=== PATIENT | male | born 1935 | race Caucasian/White ===

== ENCOUNTER → 2019-02-12 | Outpatient (CLI) | payer MEDICARE ==
[~2019-02-12] MED LIST: ALLO300; ASPI81CH; ATOR40TA PO; CARV3.125 PO; CILO100; CLOP75; LISI20 PO; Norvasc2.5 MG; SYNTHROID25 MCG
== END | disposition home or self-care (01) ==
LOC: PLD 08:03 → LAB SHORT 08:03
DX: L98.9 Disorder of the skin and subcutaneous tissue, unspecified (principal)
CPT/HCPCS: 88305; 88312

== ENCOUNTER → 2019-03-07 | Outpatient (CLI) | payer MEDICARE | END | disposition home or self-care (01) | LOC: LAB SHORT 11:57 → OLS 11:57 | DX: C44.329 Squamous cell carcinoma of skin of other parts of face (principal) | CPT/HCPCS: 88305 ==

== ENCOUNTER → 2019-03-21 | Outpatient (CLI) | payer MEDICARE | END | disposition home or self-care (01) | LOC: LAB 09:49 → LAB SHORT 09:49 | DX: C44.329 Squamous cell carcinoma of skin of other parts of face (principal) | CPT/HCPCS: 88305 ==

== ENCOUNTER 2020-05-06 11:23 | Day surgery (SDC) | payer MEDICARE ==
[~2020-05-06] VITALS: Ht 175.3 cm; Wt 73.2 kg
--- NOTE | 2020-05-06 12:53 | NUR ---
05/06/20 1253 Agnieszka Cox DELAYED ENTRY 1238 ABNORMAL 3 LEAD EKG IN PREOP. [address] CHRISTINE. OK TO PROCEED.
== END 2020-05-06 13:53 | disposition home or self-care (01) ==
LOC: ORSCSDS 11:23
PROVIDERS: Internal Medicine Gastroenterology
PROC: 0DBH8ZX Excision of Cecum, Via Natural or Artificial Opening Endoscopic, Diagnostic (ICD-10-PCS; principal; 2020-05-06 12:45)
PROC: 0DBN8ZX Excision of Sigmoid Colon, Via Natural or Artificial Opening Endoscopic, Diagnostic (ICD-10-PCS; principal; 2020-05-06 12:45)
DX: R19.4 Change in bowel habit (principal); D12.0 Benign neoplasm of cecum; D12.5 Benign neoplasm of sigmoid colon; K57.30 Diverticulosis of large intestine without perforation or abscess without bleeding; K64.4 Residual hemorrhoidal skin tags; K64.8 Other hemorrhoids; K92.1 Melena; E05.90 Thyrotoxicosis, unspecified without thyrotoxic crisis or storm; I10 Essential (primary) hypertension; R63.4 Abnormal weight loss; I25.10 Atherosclerotic heart disease of native coronary artery without angina pectoris; Z79.01 Long term (current) use of anticoagulants; Z79.82 Long term (current) use of aspirin; Z79.899 Other long term (current) drug therapy
CPT/HCPCS: 88305; 93005; 93010; J2704; J7120

== ENCOUNTER 2021-01-11 19:57 | Emergency (ER) | payer MEDICARE ==
[~2021-01-11] VITALS: Ht 175.3 cm; Wt 72.1 kg
[~2021-01-11 19:57] MED LIST changes: -CLOP75; +CLOP75 PO; +LEVSOD100 PO; -SYNTHROID25 MCG
[2021-01-11] MEDS ORDERED: PROBENECID-COL1 EACH PO (20:11)
[2021-01-11 20:18] LABS: BASOPHILS ABSOLUTE AUTO 0.01 K/mm3 (0.00-0.23); BASOPHILS PERCENT AUTO 0 % (0-2); EOSINOPHILS ABSOLUTE AUTO 0.08 K/mm3 (0.00-0.68); EOSINOPHILS PERCENT AUTO 2 % (0-6); Hematocrit 30.5 % (37.0-53.0); Hemoglobin 10.1 g/dL (13.5-17.5); IMMATURE GRAN PERCENT AUTO 3 % (0-1); LYMPHOCYTES ABSOLUTE AUTO 1.74 K/mm3 (0.84-5.20); LYMPHOCYTES PERCENT AUTO 48 % (21-46); MONOCYTES ABSOLUTE AUTO 0.44 K/mm3 (0.16-1.47); MONOCYTES PERCENT AUTO 12 % (4-13); Mean Corpuscular HGB 31.6 pg (26.0-34.0); Mean Corpuscular HGB Conc 33.1 g/dL (31.5-36.5); Mean Corpuscular Volume 95 fL (80-100); Mean Platelet Volume 9.2 fL (9.1-12.4); NEUTROPHILS ABSOLUTE AUTO 1.26 K/mm3 (1.96-9.15); NEUTROPHILS PERCENT AUTO 35 % (41-73); Platelet Count 218 K/mm3 (150-400); RDW Coefficient Variation 13.7 % (11.7-14.2); RDW Standard Deviation 48.2 fL (35.1-46.3); White Blood Cell Count 3.63 K/mm3 (4.00-11.30)
[2021-01-11 20:37] LABS: Albumin/Globulin Ratio 0.8 (0.8-1.8); Bilirubin, Total 0.2 mg/dL (0.1-1.0); Bun/Creatinine Ratio 13.9 (12.0-20.0); Calcium, Blood 9.2 mg/dL (8.5-10.1); Creatinine, Blood 1.66 mg/dL (0.60-1.20); Globulin, Blood 3.7 g/dL (2.2-4.0); Magnesium, Blood 2.2 mg/dL (1.6-2.4); Total Protein, Blood 6.7 g/dL (6.4-8.2)
== END 2021-01-11 23:04 | disposition home or self-care (01) ==
LOC: ER 19:57
PROVIDERS: Student in an Organized Health Care Education/Training Program
DX: R55 Syncope and collapse (principal); Z88.1 Allergy status to other antibiotic agents; Z79.02 Long term (current) use of antithrombotics/antiplatelets; Z95.5 Presence of coronary angioplasty implant and graft; Z79.899 Other long term (current) drug therapy; Z87.891 Personal history of nicotine dependence
CPT/HCPCS: 70450; 71045; 80053; 83735; 84484; 85025; 93005; 93010; 99285-25; J7030

== ENCOUNTER 2021-10-27 15:59 | Emergency (ER) | payer MEDICARE ==
[~2021-10-27] VITALS: Ht 175.3 cm; Wt 70.3 kg
[~2021-10-27 15:59] MED LIST changes: +EUTHYROX125 MCG PO; -LEVSOD100 PO; +PROBENECID-COL1 EACH PO
[2021-10-27 18:10] LABS: BASOPHILS ABSOLUTE AUTO 0.01 K/mm3 (0.00-0.23); BASOPHILS PERCENT AUTO 0 % (0-2); EOSINOPHILS ABSOLUTE AUTO 0.03 K/mm3 (0.00-0.68); EOSINOPHILS PERCENT AUTO 1 % (0-6); Hematocrit 31.2 % (37.0-53.0); Hemoglobin 10.3 g/dL (13.5-17.5); IMMATURE GRAN ABSOLUTE AUTO 0.07 K/mm3 (0.00-0.10); IMMATURE GRAN PERCENT AUTO 2 % (0-1); LYMPHOCYTES ABSOLUTE AUTO 1.18 K/mm3 (0.84-5.20); LYMPHOCYTES PERCENT AUTO 26 % (21-46); MONOCYTES PERCENT AUTO 11 % (4-13); Mean Corpuscular HGB 30.5 pg (26.0-34.0); Mean Corpuscular Volume 92 fL (80-100); Mean Platelet Volume 8.9 fL (9.1-12.4); NEUTROPHILS ABSOLUTE AUTO 2.79 K/mm3 (1.96-9.15); NEUTROPHILS PERCENT AUTO 61 % (41-73); Platelet Count 275 K/mm3 (150-400); RDW Coefficient Variation 14.2 % (11.7-14.2); RDW Standard Deviation 47.8 fL (35.1-46.3); Red Blood Cell Count 3.38 M/mm3 (4.30-5.90); White Blood Cell Count 4.58 K/mm3 (4.00-11.30)
[2021-10-27 18:37] LABS: Albumin, Blood 3.2 g/dL (3.4-5.0); Albumin/Globulin Ratio 0.8 (0.8-1.8); Bilirubin, Total 0.4 mg/dL (0.1-1.0); Calcium, Blood 10.8 mg/dL (8.5-10.1); Creatinine, Blood 1.28 mg/dL (0.60-1.20); Globulin, Blood 3.8 g/dL (2.2-4.0); Potassium, Blood 4.6 mmol/L (3.5-5.5)
[2021-10-27 19:27] LABS: Source, Urine Voided
[2021-10-27 19:31] LABS: Appearance, Urine Clear (Clear); Bilirubin, Urine Neg (Neg); Blood, Urine Neg (Neg); Color, Urine Yellow (P-Yellow); Glucose Qualitative, Urine Neg (Neg); Ketones, Urine 1+ (Neg); Leukocyte Esterase, Urine Neg (Neg); Nitrite, Urine Neg (Neg); Protein, Urine Neg (Neg); Urobilinogen, Urine NORM (Normal)
[2021-10-27 19:43] LABS: Free Thyroxine 1.26 ng/dL (0.70-1.60); Thyroid Stimulating Hormone 0.479 uIU/mL (0.360-4.800)
== END 2021-10-27 21:04 | disposition home or self-care (01) ==
LOC: ER 15:59
PROVIDERS: Emergency Medicine
DX: E87.1 Hypo-osmolality and hyponatremia (principal); N18.9 Chronic kidney disease, unspecified; Z79.899 Other long term (current) drug therapy; Z87.891 Personal history of nicotine dependence
CPT/HCPCS: 70450; 71045; 80053; 81003; 83880; 84439; 84443; 84484; 85025; 93005; 93010; 99285-25

== ENCOUNTER 2021-10-29 07:43 | Inpatient (IN) | payer MEDICARE ==
[~2021-10-29] VITALS: Ht 175.3 cm; Wt 70.3 kg
[2021-10-29] MEDS ORDERED: METOPROLOL SUCC25 MG PO (08:06)
[2021-10-29 08:47] LABS: BASOPHILS ABSOLUTE AUTO 0.01 K/mm3 (0.00-0.23); BASOPHILS PERCENT AUTO 0 % (0-2); EOSINOPHILS ABSOLUTE AUTO 0.07 K/mm3 (0.00-0.68); EOSINOPHILS PERCENT AUTO 2 % (0-6); Hemoglobin 10.3 g/dL (13.5-17.5); IMMATURE GRAN ABSOLUTE AUTO 0.05 K/mm3 (0.00-0.10); IMMATURE GRAN PERCENT AUTO 1 % (0-1); LYMPHOCYTES ABSOLUTE AUTO 1.34 K/mm3 (0.84-5.20); LYMPHOCYTES PERCENT AUTO 34 % (21-46); MONOCYTES ABSOLUTE AUTO 0.57 K/mm3 (0.16-1.47); MONOCYTES PERCENT AUTO 15 % (4-13); Mean Corpuscular HGB 30.7 pg (26.0-34.0); Mean Corpuscular HGB Conc 33.2 g/dL (31.5-36.5); Mean Corpuscular Volume 93 fL (80-100); Mean Platelet Volume 9.2 fL (9.1-12.4); NEUTROPHILS ABSOLUTE AUTO 1.86 K/mm3 (1.96-9.15); NEUTROPHILS PERCENT AUTO 48 % (41-73); Platelet Count 284 K/mm3 (150-400); RDW Standard Deviation 47.8 fL (35.1-46.3); Red Blood Cell Count 3.35 M/mm3 (4.30-5.90)
[2021-10-29 09:07] LABS: Albumin, Blood 3.1 g/dL (3.4-5.0); Albumin/Globulin Ratio 0.8 (0.8-1.8); Bilirubin, Total 0.6 mg/dL (0.1-1.0); Bun/Creatinine Ratio 12.6 (12.0-20.0); Calcium, Blood 10.9 mg/dL (8.5-10.1); Creatinine, Blood 1.35 mg/dL (0.60-1.20); Globulin, Blood 3.9 g/dL (2.2-4.0); Magnesium, Blood 2.2 mg/dL (1.6-2.4); Potassium, Blood 4.4 mmol/L (3.5-5.5)
[2021-10-29 09:23] LABS: Source, Urine Clean Catch
[2021-10-29 09:43] LABS: Appearance, Urine Clear (Clear); Bilirubin, Urine Neg (Neg); Blood, Urine Neg (Neg); Color, Urine Yellow (P-Yellow); Glucose Qualitative, Urine Neg (Neg); Ketones, Urine Neg (Neg); Leukocyte Esterase, Urine Neg (Neg); Nitrite, Urine Neg (Neg); Protein, Urine Neg (Neg); Urobilinogen, Urine NORM (Normal)
[2021-10-29] MEDS ORDERED: GABA100 PO (22:02)
[2021-10-29] MEDS ORDERED: TRIDERM28.4 GM TOP (22:03)
[2021-10-29] MEDS ORDERED: ISOSORBIDE MONO60 MG PO (22:07)
[2021-10-29] MEDS ORDERED: PRAVASTATIN SOD20 MG PO (22:08)
[2021-10-30 02:05] LABS: U Amphetamine Screen Not Detected; U Barbituate Screen Not Detected; U Benzodiazapine Screen Not Detected; U Buprenorphine Screen Not Detected; U Cannabinoids Screen Not Detected; U Cocaine Screen Not Detected; U Methadone Screen Not Detected; U Methamphetamine Screen Not Detected; U Opiates Screen Not Detected; U Oxycodone Screen Not Detected; U Phencyclidine Screen Not Detected; U Propoxyphene Screen Not Detected
[2021-10-30 02:09] LABS: Influenza A, PCR NEGATIVE (NEGATIVE); Influenza B, PCR NEGATIVE (NEGATIVE); Resp Syncytial Virus, PCR NEGATIVE (NEGATIVE); SARS-Cov-2 (COVID-19) PCR, MMC NEGATIVE (NEGATIVE)
[2021-10-30 08:34] LABS: BASOPHILS ABSOLUTE AUTO 0.01 K/mm3 (0.00-0.23); BASOPHILS PERCENT AUTO 0 % (0-2); EOSINOPHILS ABSOLUTE AUTO 0.06 K/mm3 (0.00-0.68); EOSINOPHILS PERCENT AUTO 1 % (0-6); Hematocrit 34.7 % (37.0-53.0); Hemoglobin 11.3 g/dL (13.5-17.5); IMMATURE GRAN ABSOLUTE AUTO 0.04 K/mm3 (0.00-0.10); IMMATURE GRAN PERCENT AUTO 1 % (0-1); LYMPHOCYTES ABSOLUTE AUTO 1.16 K/mm3 (0.84-5.20); LYMPHOCYTES PERCENT AUTO 22 % (21-46); MONOCYTES ABSOLUTE AUTO 0.54 K/mm3 (0.16-1.47); MONOCYTES PERCENT AUTO 10 % (4-13); Mean Corpuscular HGB Conc 32.6 g/dL (31.5-36.5); Mean Corpuscular Volume 92 fL (80-100); Mean Platelet Volume 8.9 fL (9.1-12.4); NEUTROPHILS PERCENT AUTO 66 % (41-73); Platelet Count 298 K/mm3 (150-400); RDW Coefficient Variation 13.8 % (11.7-14.2); RDW Standard Deviation 46.9 fL (35.1-46.3); Red Blood Cell Count 3.77 M/mm3 (4.30-5.90); White Blood Cell Count 5.31 K/mm3 (4.00-11.30)
[2021-10-30 08:47] LABS: Alanine Aminotransfer (ALT/SGP 19 U/L (12-78); Albumin, Blood 3.1 g/dL (3.4-5.0); Albumin/Globulin Ratio 0.8 (0.8-1.8); Alk Phos 73 U/L (50-136); Anion Gap 7 mmol/L (6-16); Aspartate Aminotrans (AST/SGOT 20 U/L (12-37); Bilirubin, Total 0.4 mg/dL (0.1-1.0); Blood Urea Nitrogen 18 mg/dL (8-24); Bun/Creatinine Ratio 16.5 (12.0-20.0); CO2, Blood 25 mmol/L (21-32); Calcium, Blood 10.2 mg/dL (8.5-10.1); Chloride, Blood 103 mmol/L (98-108); Creatinine, Blood 1.09 mg/dL (0.60-1.20); Globulin, Blood 4.1 g/dL (2.2-4.0); Glomerular Filtration Rate >60 (60-); Glucose, Blood 105 mg/dL (70-99); Potassium, Blood 3.8 mmol/L (3.5-5.5); Sodium, Blood 135 mmol/L (136-145); Total Protein, Blood 7.2 g/dL (6.4-8.2)
[2021-10-30] MEDS ORDERED: LISI5 PO (11:43)
[2021-10-30] MEDS ORDERED: CLOP75 PO (11:44)
[2021-10-30] MEDS ORDERED: ASPIR 8181 M1 PO (11:46)
--- NOTE | 2021-10-30 12:19 | NUR ---
MD CALL CALLED DR HILL TO LET HER KNOW ORTHOSTATIC BP RESULTS AND THAT MED REC WAS DONE.
--- NOTE | 2021-10-30 17:18 | NUR ---
SHIFT SUMMARY MR ECKERT IS A&OX4. HE SAID THAT HE FEELS MENTALLY "FUZZY" AND WHEN HE CLOSES HIS EYES HE "HALLUCINATES" THAT HE IS GETTING PROCEDURES DONE IN THE HOSPITAL, BUT WHEN HE OPENS HIS EYES HE KNOWS IT'S NOT REAL. APPROPRIATE AND ENGAGED IN CONVERSATION WITH ME TODAY. HEAD MRI DONE. NO SOB ON RA. NO PAIN TODAY. OOBTC WITH 2 PERSON ASSIST AFTER PT EVALUATION THIS AM. UP FOR LUNCH, WEAK TRANSFER WITH [facility]T, WALKER, 2 STAFF ASSIST. FATIGUED AFTER BEING OOB FOR LUNCH. RLE FIRM SWOLLEN LEG THAT PT SAID HE HAS HAD FOR 3 YEARS, AND HAS HAD BAKERS CYST BEHIND R KNEE DRAINED MORE THAN ONCE. HTN THIS AM, MEDICATIONS HELPED. PT SAID HTN HAS BEEN UNCONTROLLED FOR A LONG TIME AT HOME. PENA TO DRAINAGE BAG. IVF INFUSING. TOLERATING PO FLUIDS AND MAKING AN EFFORT TO DRINK WELL TODAY. BED LOW, CALL LIGHT IN REACH.
[2021-10-31 05:22] LABS: Hematocrit 27.5 % (37.0-53.0); Hemoglobin 9.2 g/dL (13.5-17.5); Mean Corpuscular HGB 30.7 pg (26.0-34.0); Mean Corpuscular HGB Conc 33.5 g/dL (31.5-36.5); Mean Corpuscular Volume 92 fL (80-100); Mean Platelet Volume 9.3 fL (9.1-12.4); Platelet Count 252 K/mm3 (150-400); RDW Coefficient Variation 13.8 % (11.7-14.2); RDW Standard Deviation 46.3 fL (35.1-46.3)
--- NOTE | 2021-10-31 05:43 | NUR ---
SHIFT SUMMARY PT SLEPT OFF AND ON THIS EVENING. REPORTING PAIN TO NECK AND SHOULDERS. HEATING PAD APPLIED WITH SOME RELIEF. NEW ORDER FOR NAPROXEN WITH GOOD EFFECT. PT REPORTING THE NEED TO HAVE A BOWEL MOVEMENT. MIRALAX GIVEN BY DAY RN AND SCHEDULED 2100 [address] ADMINISTERED WITH NO OUTPUT. SUPPOSITORY ORDERED THIS AM AND ADMINISTERED. AWAITING RESULTS. PT CONTINUES WITH WEAKNESS. MOBILITY VERY LIMITED. PT REMAINED IN BED THROUGHOUT THE NIGHT. PENA PATENT AND DRAINING. FLUID INFUSION COMPLETED AND PT SALINE LOCKED. VITAL SIGNS STABLE. WILL CONTINUE TO MONITOR.
[2021-10-31 06:04] LABS: Anion Gap 7 mmol/L (6-16); Blood Urea Nitrogen 25 mg/dL (8-24); Bun/Creatinine Ratio 19.8 (12.0-20.0); CHOL/HDL RATIO 2.9; CO2, Blood 22 mmol/L (21-32); Calcium, Blood 8.7 mg/dL (8.5-10.1); Chloride, Blood 98 mmol/L (98-108); Cholesterol 126 mg/dL (50-200); Creatinine, Blood 1.26 mg/dL (0.60-1.20); Glomerular Filtration Rate 54 (60-); Glucose, Blood 99 mg/dL (70-99); HDL Cholesterol 43 mg/dL (>39); LDL/HDL RATIO 1.6; Low Density Lipoprotein Chol 69 mg/dL (0-110); Potassium, Blood 3.9 mmol/L (3.5-5.5); Sodium, Blood 127 mmol/L (136-145); Triglycerides 70 mg/dL (30-160); Very Low Density Lipoprot Chol 14 mg/dL (6-32)
--- NOTE | 2021-10-31 11:54 | NUR ---
AM NOTE MR ECKERT IS ALERT, ORIENTATED X4. HE SAID THAT THE "FUZZY" FEELING IN HIS HEAD THAT HE HAD YESTERDAY HAS IMPROVED. HE DENIES HALLUCINATIONS TODAY. HE HAS 1/10 NECK/SHOULDER PAIN THAT HE SAID IS VERY MINOR. NO SOB ON RA, NO CHEST PAIN. 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 HIS SAID THAT SHE HAS NOTICED THAT HE IS WEAKER ON HIS RIGHT LEG AND ARM AT HOME. NO FACIAL DROOP. BEDSIDE ECHO DONE THIS AM. TRANSPORT COMING TO GET HIM NOW FOR HEAD AND NECK CT. NEW PIV PLACED AND IVF INFUSING. BED LOW, CALL LIGHT IN REACH.
--- NOTE | 2021-10-31 17:50 | NUR ---
[facility] VISIT- Pt sitting up in bed eating his dinner. He is alert, oriented, happy to see me. 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 Pt reports he has been weak and experiencing falls at home and could not get himself up. He was dx with CVA with work up during this hospital stay. He reports getting stronger and working with PT/OT daily. 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 He reports they live in a home nearby his and on the same property now. He states his is dealing with some heart issues and is not able to cont with ranching either. 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 He is not having any difficuly expressing himself or articulating thoughts and feelings. He expressed feeling some gratitude at being near the end of his life due to the current state of the world. He spoke about children, family members and reminisced about enjoyable times. He has children that do not speak to him and one on a heart transplant list in [place] in addition to the son who lives near him. Denise is independent in her self care but worried about Mamadou returning home. Current PT recommendation is for home with HH. Pt is agreeable to that or going to SNF for rehab if recommended. He is emotional, appropriately at times. He appears to have a good appetite and is finishing his dinner, despite remarking that meals come to room cold and without a lot of flavor. Pt is a very good cook himself and it is one of his enjoyments at home in the past. Time spent supporting and listening, encouraging pt. Will return for support. Pt denies pain. Reports discomfort of being in bed. He is troubled by the increased effort it has become to talk and make his voice audible. He is sl dyspnic with extended conversation. He appears fatigued and frail.
--- NOTE | 2021-10-31 18:51 | NUR ---
SHIFT SUMMARY SEE AM NOTE, NO SIGNIFICANT CHANGES IN ASSESSMENT. HAD HEAD/NECK CT TODAY AND BEDSIDE ECHO. IVF INFUSED TODAY. TOLERATED ORAL FLUIDS WELL, NO PAIN OR SOB. BED LOW, CALL LIGHT IN REACH. PENA STILL IN, URINE CLEAR AND PALE. TOLERATING PO FLUIDS WELL.
--- NOTE | 2021-11-01 03:56 | NUR ---
SHIFT SUMMARY PT APPEARED TO SLEEP BETTER THIS EVENING WHEN NOT BEING WOKEN BY STAFF. LARGE GREEN UNFORMED BM PER TRADING SPECIALIST ON BEDPAN. PENA CATH REMAINED IN PLACE, PATENT AND DRAINING. PT REPORTED THAT PAIN TO SHOULDERS/NECK IMPROVED AND PT DID REQUIRE ANY NAPROXEN THIS SHIFT. HEATING PAD IN PLACE ON SHOULDERS/NECK. NO ACUTE CHANGES THIS EVENING. VITAL SIGNS STABLE. WILL CONTINUE TO MONITOR.
[2021-11-01 05:07] LABS: BASOPHILS ABSOLUTE AUTO 0.01 K/mm3 (0.00-0.23); BASOPHILS PERCENT AUTO 0 % (0-2); EOSINOPHILS PERCENT AUTO 2 % (0-6); Hematocrit 27.6 % (37.0-53.0); Hemoglobin 9.3 g/dL (13.5-17.5); IMMATURE GRAN ABSOLUTE AUTO 0.08 K/mm3 (0.00-0.10); IMMATURE GRAN PERCENT AUTO 2 % (0-1); LYMPHOCYTES ABSOLUTE AUTO 1.45 K/mm3 (0.84-5.20); LYMPHOCYTES PERCENT AUTO 30 % (21-46); MONOCYTES ABSOLUTE AUTO 0.57 K/mm3 (0.16-1.47); MONOCYTES PERCENT AUTO 12 % (4-13); Mean Corpuscular HGB Conc 33.7 g/dL (31.5-36.5); Mean Corpuscular Volume 92 fL (80-100); NEUTROPHILS ABSOLUTE AUTO 2.63 K/mm3 (1.96-9.15); NEUTROPHILS PERCENT AUTO 54 % (41-73); Platelet Count 282 K/mm3 (150-400); RDW Standard Deviation 46.9 fL (35.1-46.3); White Blood Cell Count 4.84 K/mm3 (4.00-11.30)
[2021-11-01 05:33] LABS: Bun/Creatinine Ratio 19.5 (12.0-20.0); Creatinine, Blood 1.18 mg/dL (0.60-1.20); Potassium, Blood 4.6 mmol/L (3.5-5.5)
--- NOTE | 2021-11-02 06:32 | NUR ---
SHIFT SUMMARY A/OX3, 1 ASSIST WITH FWW TO BATHROOM. DIFFICULTY URINATING THIS AM, BLADDER SCANNER SHOWED >800. AMBULATED TO BATHROOM AND URINATED WITH NO ISSUES, POST BLADDER SCAN SHOWED 0 RESIDUAL. VSS, NO ACUTE CHANGES AT THIS TIME. BED IN LOWEST POSITION WITH CALL LIGHT IN REACH. WILL CONTINUE TO MONITOR AND REPORT TO ONCOMING RN.
[2021-11-02] MEDS ORDERED: GABA100 PO (09:10)
--- NOTE | 2021-11-02 11:35 | NUR ---
Upon receiving a spiritual care referral, I visit pt. 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 He weeps in huma over the love of his , the beauty in nature and the people he has been able to help along the way. He is "completely at peace" with as he quotes Erick, "To be or not to be... to , to sleep, no more." He also shares about the harmlessness of worship when it moves one toward love and kindness and the evils of it when it compels people to kill and hate. Pt is encouraged and uplifted by telling his own story and sharing his own philosophies. I encourage self-care, and provide therapeutic listening, companionship and a calming presence. Patient responds well and shows signs of an elevated mood. I will continue to remain available to patient and family.
--- NOTE | 2021-11-02 15:14 | NUR ---
F/u visit made. Pt began to cry and reached for my hand upon entering the room. I asked if he was sad or frustrated and he said "frustrated" and that he'd had a "melt down" this am. Time spent just sitting with pt. RN getting medications for him and breakfast. Pt was able to slowly get himself scooted up in bed for sitting up for breakfast. He ate 100% of his breakfast while we talked. He reports he is going home with and will have a transport home and help up the stairs and will stay upstairs until he is stronger. His is still voicing conern about pt going home but therapies recommend home with HH. Pt has had some issues with start of void. After breakfast I assisted him to sitting at edge of bed and use of urinal. He was able to void 200 ml of straw colored urine. This was reported to RN an written on white board. Pt thanked me for visiting and being his friend when he was feeling very vulnerable and frustrated. He demonstrated feeling much better emotionally at the end of our visit. Plan to f/u as an outpatient by phone if possible.
== END 2021-11-02 12:48 | disposition home health service (06) | DRG 65 ==
LOC: ER 07:43 → MEDS 22:45
PROVIDERS: Physician Assistant; Student in an Organized Health Care Education/Training Program; ADMIT Internal Medicine
PROC: 00JU3ZZ Inspection of Spinal Canal, Percutaneous Approach (ICD-10-PCS; principal; 2021-10-29)
DX: I63.9 Cerebral infarction, unspecified (principal); G81.91 Hemiplegia, unspecified affecting right dominant side; E87.1 Hypo-osmolality and hyponatremia; M51.36 Other intervertebral disc degeneration, lumbar region; M48.061 Spinal stenosis, lumbar region without neurogenic claudication; M47.896 Other spondylosis, lumbar region; I12.9 Hypertensive chronic kidney disease with stage 1 through stage 4 chronic kidney disease, or unspecified chronic kidney disease; E03.9 Hypothyroidism, unspecified; Z20.822 Contact with and (suspected) exposure to COVID-19; R29.810 Facial weakness; I25.10 Atherosclerotic heart disease of native coronary artery without angina pectoris; K59.00 Constipation, unspecified; E79.0 Hyperuricemia without signs of inflammatory arthritis and tophaceous disease; E78.5 Hyperlipidemia, unspecified; I73.9 Peripheral vascular disease, unspecified; N18.2 Chronic kidney disease, stage 2 (mild); M47.816 Spondylosis without myelopathy or radiculopathy, lumbar region; D53.9 Nutritional anemia, unspecified; R33.9 Retention of urine, unspecified; E86.0 Dehydration; E83.52 Hypercalcemia; G62.9 Polyneuropathy, unspecified; Z98.0 Intestinal bypass and anastomosis status; Z88.8 Allergy status to other drugs, medicaments and biological substances; Z88.1 Allergy status to other antibiotic agents; Z79.890 Hormone replacement therapy; Z95.5 Presence of coronary angioplasty implant and graft; Z98.890 Other specified postprocedural states; Z79.899 Other long term (current) drug therapy; Z90.79 Acquired absence of other genital organ(s); W18.30XA Fall on same level, unspecified, initial encounter
CPT/HCPCS: 0241U; 36415; 51702; 51798; 70450; 70496; 70498; 70551; 72141; 72146; 72148; 80048; 80053; 80061; 80400; 81003; 82533; 83036; 83735; 85025; 85027; 92523; 93246; 93308; 93321; 94760; 97110; 97116; 97161; 97166; 97530; 97535; 99285-25; A9270; J0360; J0834; J7030; Q9967